=== PATIENT | female | born 1995 | race American Indian/Alaskan Native ===

== ENCOUNTER 2017-01-23 08:13 | Emergency (ER) | payer OTHER ==
[2017-01-23 08:56] LABS: Basophils % (Auto) 0.8 % (0.0-1.8); Eosinophils % (Auto) 0.7 % (0.0-4.3); Hemoglobin 15.8 gm/dl (10.1-14.3); Mean Corpuscular HGB Conc 35 % (30-34); Mean Corpuscular Hemoglobin 31 pg (28-32); Mean Corpuscular Volume 89 fl (79-97); Platelet Count 319 K/mm3 (140-440); Red Blood Count 5.03 M/mm3 (3.65-5.03); Red Cell Distribution Width 13.7 % (13.2-15.2); White Blood Count 7.6 K/mm3 (4.5-11.0)
[2017-01-23 09:01] LABS: Bilirubin,Urine NEG (Negative); Blood,Urine NEG (Negative); Ketones,Urine 20 mg/dL (Negative); Leukocyte Esterase,Urine NEG (Negative); Mucus,Urine FEW /HPF; Nitrite,Urine NEG (Negative); Protein,Urine <15 mg/dL mg/dL (Negative); RBC,Urine < 1.0 /HPF (0.0-6.0); Urobilinogen,Urine < 2.0 mg/dL (<2.0); WBC,Urine < 1.0 /HPF (0.0-6.0)
--- NOTE | 2017-01-23 09:36 | XRay Report ---
CHEST TWO VIEWS: 01/23/17 08:13:00 CLINICAL: Chest pain. COMPARISON: None FINDINGS: Normal heart and pulmonary vasculature. The lungs are normally expanded and clear.The bones and soft tissues are unremarkable. IMPRESSION: Normal chest.
[2017-01-23 11:35] LABS: Anion Gap 25 mmol/L; BUN/Creatinine Ratio 16.25; Blood Urea Nitrogen 13 mg/dL (7-17); Calcium 9.4 mg/dL (8.4-10.2); Carbon Dioxide 20 mmol/L (22-30); Chloride 94.2 mmol/L (98-107); Glucose 455 mg/dL (65-100); Potassium 3.9 mmol/L (3.6-5.0); Sodium 135 mmol/L (137-145)
[2017-01-23] MEDS ORDERED: NACL 0.9% 1000 ML 1,000 ML IV ONE (12:23)
[2017-01-23] MEDS ORDERED: TORADOL IV ONE (12:23)
--- NOTE | 2017-01-23 12:29 | Emergency Department Report ---
HPI - General Chief Complaint: Back Pain/Injury Time Seen by Provider: 01/23/17 12:06 - HPI HPI: Room 5 Patient is a 21-year-old female presenting with a chief complaint of chest pain and back pain. The patient states for the past 4 days she is a sharp pain in her right chest and lower right back. Patient states the chest pain started first. The patient describes pain as constant and occasionally pleuritic. Patient does admit to shortness of breath but denies cough or fever. Patient denies rhinorrhea, dysuria or hematuria. The Patient gives her pain a score of 8/10 Location: [see above] Duration: 4 days Quality: Sharp Severity: 8/10 Modifying factors: [see above] Context: [see above] Mode of transportation: The patient states she walked to the emergency department and there are no visitors present ED Past Medical Hx - Past Medical History Hx Hypertension: Yes Hx Diabetes: Yes - Surgical History Additional Surgical History: I&D abscess left axilla - Family History Family history: no significant - Social History Smoking Status: Never Smoker Substance Use Type: None (denies illicit drug use) - Medications Home Medications: Home Medications Medication Instructions Recorded Confirmed Last Taken Type HYDROcodone/APAP 5-325 [Haworth 1 - 2 each PO Q6HR PRN #14 tablet 01/23/17 Unknown Rx 5/325] Ibuprofen [Motrin 800 MG tab] 800 mg PO Q8HR PRN #20 tablet 01/23/17 Unknown Rx ED Review of Systems ROS: Stated complaint: CHEST PAIN Other details as noted in HPI Comment: All other systems reviewed and negative Constitutional: denies: chills, fever Eyes: as per HPI ENT: denies: ear pain, throat pain Respiratory: shortness of breath Cardiovascular: chest pain Endocrine: no symptoms reported Gastrointestinal: denies: abdominal pain, nausea, vomiting Genitourinary: denies: dysuria, hematuria Musculoskeletal: back pain Skin: denies: rash, lesions Neurological: denies: headache, weakness, paresthesias Psychiatric: denies: anxiety, depression Hematological/Lymphatic: denies: easy bleeding, easy bruising Physical Exam - Physical Exam Vital Signs: Vital Signs 01/23/17 08:23 Temperature 97.8 F Pulse Rate 110 H Respiratory 20 Rate Blood Pressure 138/92 O2 Sat by Pulse 99 Oximetry Physical Exam: GENERAL: The patient is well-developed well-nourished []. [] HEENT: Normocephalic. Atraumatic. Extraocular motions are intact. Patient has moist mucous membranes. NECK: Supple. Trachea midline CHEST/LUNGS: Clear to auscultation. But obvious discomfort with inspiration during exam. There is no respiratory distress noted. HEART/CARDIOVASCULAR: Regular. There is no tachycardia. There is no gallop rub or murmur. ABDOMEN: Abdomen is soft, nontender. Patient has normal bowel sounds. There is no abdominal distention. SKIN: There is no rash. There is no edema. There is no diaphoresis. NEURO: The patient is awake, alert, and oriented. The patient is cooperative. The patient has normal speech MUSCULOSKELETAL: There is no evidence of acute injury. ED Course Vital Signs 01/23/17 08:23 Temperature 97.8 F Pulse Rate 110 H Respiratory 20 Rate Blood Pressure 138/92 O2 Sat by Pulse 99 Oximetry ED Medical Decision Making - Lab Data Result diagrams: 01/23/17 08:45 01/23/17 08:45 Laboratory Tests 01/23/17 01/23/17 01/23/17 08:20 08:45 08:45 WBC 7.6 RBC 5.03 Hgb 15.8 H Hct 45.0 H MCV 89 MCH 31 MCHC 35 H RDW 13.7 Plt Count 319 Lymph % (Auto) 30.0 Barry % (Auto) 7.6 H Eos % (Auto) 0.7 Baso % (Auto) 0.8 Lymph # 2.3 Barry # 0.6 Eos # 0.1 Baso # 0.1 Seg Neutrophils % 60.9 Seg Neutrophils # 4.6 VBG pH Sodium 135 L Potassium 3.9 Chloride 94.2 L Carbon Dioxide 20 L Anion Gap 25 BUN 13 Creatinine 0.8 Estimated GFR > 60 BUN/Creatinine Ratio 16.25 Glucose 455 H POC Glucose 420 H Calcium 9.4 Total Creatine Kinase CK-MB (CK-2) CK-MB (CK-2) Rel Index Troponin T HCG, Qual Urine Color Urine Turbidity Urine pH Ur Specific Troy Urine Protein Urine Glucose (UA) Urine Ketones Urine Blood Urine Nitrite Urine Bilirubin Urine Urobilinogen Ur Leukocyte Esterase Urine WBC (Auto) Urine RBC (Auto) U Epithel Cells (Auto) Urine Mucus 01/23/17 01/23/17 01/23/17 08:45 08:45 12:29 WBC RBC Hgb Hct MCV MCH MCHC RDW Plt Count Lymph % (Auto) Barry % (Auto) Eos % (Auto) Baso % (Auto) Lymph # Barry # Eos # Baso # Seg Neutrophils % Seg Neutrophils # VBG pH 7.363 Sodium Potassium Chloride Carbon Dioxide Anion Gap BUN Creatinine Estimated GFR BUN/Creatinine Ratio Glucose POC Glucose Calcium Total Creatine Kinase 58 CK-MB (CK-2) 1.1 CK-MB (CK-2) Rel Index 1.8 Troponin T < 0.010 HCG, Qual Negative Urine Color Urine Turbidity Urine pH Ur Specific Troy Urine Protein Urine Glucose (UA) Urine Ketones Urine Blood Urine Nitrite Urine Bilirubin Urine Urobilinogen Ur Leukocyte Esterase Urine WBC (Auto) Urine RBC (Auto) U Epithel Cells (Auto) Urine Mucus 01/23/17 01/23/17 12:32 Unknown WBC RBC Hgb Hct MCV MCH MCHC RDW Plt Count Lymph % (Auto) Barry % (Auto) Eos % (Auto) Baso % (Auto) Lymph # Barry # Eos # Baso # Seg Neutrophils % Seg Neutrophils # VBG pH Sodium Potassium Chloride Carbon Dioxide Anion Gap BUN Creatinine Estimated GFR BUN/Creatinine Ratio Glucose POC Glucose 427 H Calcium Total Creatine Kinase CK-MB (CK-2) CK-MB (CK-2) Rel Index Troponin T HCG, Qual Urine Color Straw Urine Turbidity Clear Urine pH 6.0 Ur Specific Troy 1.031 H Urine Protein <15 mg/dl Urine Glucose (UA) >=500 Urine Ketones 20 Urine Blood Neg Urine Nitrite Neg Urine Bilirubin Neg Urine Urobilinogen < 2.0 Ur Leukocyte Esterase Neg Urine WBC (Auto) < 1.0 Urine RBC (Auto) < 1.0 U Epithel Cells (Auto) < 1.0 Urine Mucus Few - Radiology Data Radiology results: report reviewed (CT chest), image reviewed (chest x-ray, CT chest) interpreted by me: Chest x-ray-no focal infiltrates, no pneumothorax CT chest/CT abdomen and pelvis (read by radiologist)- no acute CT evidence of pulmonary embolism or significant abdomen or pelvic CT abnormality except for distended urinary bladder incidentally noted. - Differential Diagnosis PE, aortic dissection, ACS, pneumonia, costochondritis, pyelonephritis Critical care attestation.: If time is entered above; I have spent that time in minutes in the direct care of this critically ill patient, excluding procedure time. ED Disposition Clinical Impression: Atypical chest pain, Pleurisy, Hyperglycemia Disposition: - TO HOME OR SELFCARE Is pt being admited?: No Does the pt Need Aspirin: No Condition: Stable Instructions: Chest Pain (ED), Costochondritis (ED) Additional Instructions: Return to the emergency department immediately should you develop worsening symptoms, fever, inability to tolerate food or liquid or any other concerns. Prescriptions: HYDROcodone/APAP 5-325 [Haworth 5/325] 1 - 2 each PO Q6HR PRN #14 tablet PRN Reason: Pain Ibuprofen [Motrin 800 MG tab] 800 mg PO Q8HR PRN #20 tablet PRN Reason: Pain Referrals: PRIMARY CARE, [Primary Care Provider] - 3-5 Days STEPHEN BERNAL MD [Staff Physician] - 3-5 Days (Dr. Bernal is a primary physician. Please follow up with him for further evaluation) Time of Disposition: 14:01
[2017-01-23 12:50] LABS: Creatine Kinase MB 1.1 ng/mL (0.0-4.0)
[2017-01-23 12:51] LABS: Creatine Kinase 58 units/L (30-135)
--- NOTE | 2017-01-23 13:46 | Cat Scan Report ---
CTA CHEST CT ABDOMEN AND PELVIS WITH CONTRAST INDICATION: Shortness of breath, right sided pleuritic chest pain. COMPARISON: None similar. FINDINGS: Chest CTA as also abdomen and pelvis CT performed following intravenous administration of 100 cc of Omnipaque 300. Axial, sagittal, coronal and MIP reconstructions obtained. CHEST: Normal heart size. No effusions. No aortic aneurysm or dissection. No suspicious pulmonary arterial filling defects. No significant adenopathy. Patent central airway. Normal thyroid. Clear lungs. Slight nonspecific air filled distal esophageal prominence. ABDOMEN: Liver, spleen, gallbladder, pancreas, adrenals, aorta, IVC and kidneys within normal limits. Right hepatic lobe approximately 18 cm in midclavicular line. Nonopacified GI tract evaluation limited, though grossly nonobstructive. Normal appendix. No effusions or size significant adenopathy. PELVIS: Distended urinary bladder rising to just below the level of umbilicus. Uterus and adnexa/ovaries within normal limits. No free fluid or significant adenopathy. Rectosigmoid stool. Slight scoliosis. CONCLUSION: No acute CT evidence of pulmonary embolism or significant abdomen or pelvic CT abnormality except for a distended urinary bladder incidentally noted. Please correlate. Thank you for the opportunity to participate in this patient's care.
[2017-01-23 14:29] VITALS: BP 141/95
== END 2017-01-23 14:31 | disposition home or self-care (01) ==
LOC: ED 08:13
DX: R09.1 Pleurisy (principal); E11.65 Type 2 diabetes mellitus with hyperglycemia; I10 Essential (primary) hypertension
CPT/HCPCS: 36415; 71020; 71275; 74177; 80048; 81001; 82550; 82553; 82805; 82962; 84484; 84703; 85025; 93005; 93010; 96361; 96374; 96375; 99285; J1885; J7030; Q9967; J1815